=== PATIENT | male | born 1975 | race Caucasian/White ===

== ENCOUNTER 2022-02-03 10:02 | Emergency (ER) | payer BC, SELFPAY ==
[2022-02-03 11:25] VITALS: BP 196/94; PULSE 88; RESP 18; TEMP 36.8; O2SAT 97; BMI 25.0
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
[2022-02-03 11:58] VITALS: BP 176/101; PULSE 88; RESP 18; TEMP 36.8; O2SAT 97
== END 2022-02-03 12:11 | disposition home or self-care (01) ==
PROVIDERS: Emergency Provider Nurse Practitioner; PCP Physician Assistant
DX: L03.90 Cellulitis, unspecified (principal); R21 Rash and other nonspecific skin eruption; F41.9 Anxiety disorder, unspecified; F17.210 Nicotine dependence, cigarettes, uncomplicated; Z79.52 Long term (current) use of systemic steroids; Z79.899 Other long term (current) drug therapy; W57.XXXA Bitten or stung by nonvenomous insect and other nonvenomous arthropods, initial encounter; Y92.019 Unspecified place in single-family (private) house as the place of occurrence of the external cause
CPT/HCPCS: 99213; G0463

== ENCOUNTER 2022-02-24 13:14 | Emergency (ER) | payer BC, SELFPAY ==
[2022-02-24 13:16] VITALS: BP 185/123; PULSE 122; RESP 22; TEMP 36.5; O2SAT 97; BMI 24.3
--- NOTE | 2022-02-24 13:43 | HMH.EDSKAF ---
ED Disposition Clinical Impression: Impetigo Shingles Qualifiers: Herpes zoster complications: without complications Qualified Code(s): B02.9 - Zoster without complications Disposition: Home, Self-Care Condition on Discharge: Good Instructions: DI for Shingles Prescriptions: methylPREDNISolone [Medrol 4mg tab] 4 mg PO DIRECTED #21 tab [facility] Status[facility] Mupirocin Calcium [Mupirocin 2% Cream 15gm] 1 applicatio TP TID #30 gm Transmission Status: [facility] Valacyclovir HCl [Valacyclovir] 1,000 mg PO TID #21 tab Transmission Status: [facility] Referrals: Shalini Fuentes PA [Primary Care Provider] - - Critical Care Critical Care Time: No Attestation: On 02/24/22, the high probability of a clinically significant, sudden or life threatening deterioration of the following system(s) required my full and direct attention, intervention and personal management. The time I documented below is in addition to time spent performing reported procedures but includes the following listed in this critical care notation. Medical Decision Making - Medical Records Medical records reviewed: Yes: I reviewed the patient's medical records. - Randy Inquiry Pt receiving controlled substance: No Vital Signs: 02/24/22 13:16 Temperature 97.7 F Temperature Source Oral Pulse Rate [Right Radial] 122 H Respiratory Rate 22 Blood Pressure [Right Arm] 185/123 H Blood Pressure Mean [Right Arm] 143 Blood Pressure Source [Right Arm] Automatic Cuff Blood Pressure Position [Right Arm] Sitting 02 Sat by Pulse Oximetry 97 Oxygen Delivery Method Room Air Medical Decision Narrative: 46-year-old male presented to the emergency department with rash. Symptoms are consistent with shingles. Patient placed on antiviral as well as steroid therapy. Topical cream will be also prescribed for possible superinfection with impetigo. Patient needs follow-up with PCP in 48 hours. Given strict return precautions. Verbalized understanding. Skin/Abscess/FB HPI - General Chief complaint: Skin/Abscess/Foreign Body Stated complaint: painful rash/seeping, possible anxiety Time Seen by Provider: 02/24/22 13:20 Mode of Arrival: Ambulatory Limitations: No Limitations Description of Symptoms (Recalled from ER Triage Doc. by RN): Pt c/o diffuse rash that is painful and ithching. Pt advises that it began on his rt ankle, but is now on his back and under his rt arm. - History of Present Illness HPI narrative: 46-year-old male presenting with a rash over his abdomen and trunk. Patient states that he has had this for the last few days. It started to get painful and itchy as well. It wraps around from his right back and flank across his abdomen. He denies any recent contacts or new ingestions. He states that it does drain some clear fluid. Denies any pus. Is not having fevers or chills. No headache or change in vision. No focal weakness. Chest pain or shortness of breath. Abdominal pain or vomiting. No diarrhea. - Related Data Previous Rx's Medication Instructions Recorded sulfacetamide sodium 10 % eye drops 2 drp OPHTHALMIC QID 7 Days #15 ml 07/26/21 triamcinolone acetonide 0.5 % 1 applic TOPICAL BID 7 Days #15 g 07/26/21 topical cream Mupirocin [Bactroban 2% Ointment 1 applicatio TP TID 10 Days #22 gm 02/03/22 22gm tube] cephALEXin [cephALEXin 500mg 500 mg PO Q6H 7 Days #28 cap 02/03/22 capsule*] predniSONE [Deltasone 10mg tablet] 10 mg PO BID 5 Days #10 tab 02/03/22 Mupirocin Calcium [Mupirocin 2% 1 applicatio TP TID #30 gm 02/24/22 Cream 15gm] Valacyclovir HCl [Valacyclovir] 1,000 mg PO TID #21 tab 02/24/22 methylPREDNISolone [Medrol 4mg 4 mg PO DIRECTED #21 tab 02/24/22 tab] Allergies Allergy/AdvReac Type Severity Reaction Status Date / Time No Known Allergies Allergy Verified 07/26/21 12:33 [facility] History - Hepatitis A S
[2022-02-24 13:49] VITALS: BP 174/98; PULSE 109; RESP 20; TEMP 36.5; O2SAT 97
== END 2022-02-24 13:56 | disposition home or self-care (01) ==
PROVIDERS: Emergency Provider Emergency Medicine; PCP Physician Assistant
DX: B02.9 Zoster without complications (principal); R21 Rash and other nonspecific skin eruption; F41.9 Anxiety disorder, unspecified; F17.210 Nicotine dependence, cigarettes, uncomplicated; Z79.52 Long term (current) use of systemic steroids; Z79.899 Other long term (current) drug therapy
CPT/HCPCS: 99283

== ENCOUNTER 2022-06-30 09:43 | Emergency (ER) | payer BC, SELFPAY ==
--- NOTE | 2022-06-30 09:47 | HMH.EDUTC ---
[facility] [place] Clinical Impression: Viral syndrome Disposition: Home, Self-Care Condition on Discharge: Good Instructions: DI for Viral Syndrome, DI for COVID-19 (Suspected or Confirmed ), Preventing the Spread of Coronavirus Discharge Instructions Additional Instructions: Drink plenty of fluids. Take tylenol or ibuprofen for pain or fever. Take the medications as directed. Follow up with your regular doctor. GO TO THE ER FOR ANY WORSENING SYMPTOMS Quarantine until you know the results of your covid-19 test. Notify your school or workplace of your results and follow their instructions regarding return to work/school. Prescriptions: Ondansetron [Zofran 4mg ODT] 4 mg PO Q8HP PRN #12 tab PRN Reason: Nausea Transmission Status: [facility] Benzonatate [Benzonatate 100mg cap] 100 mg PO TIDP PRN #30 cap PRN Reason: Cough Transmission Status: Re[facility] by [facility] Referrals: Shalini Fuentes PA [Primary Care Provider] - Forms: Work/School Release Time of Disposition: 10:32 Medical Decision Making - Medical Records Medical records reviewed: No: I reviewed the patient's medical records. - Randy Inquiry Pt receiving controlled substance: No Vital Signs: 06/30/22 09:55 06/30/22 10:35 Temperature 99.2 F 99.2 F Temperature Source Oral Pulse Rate 126 H Pulse Rate [Left Brachial] 126 H Respiratory Rate 20 20 Blood Pressure 195/118 H Blood Pressure [Left Arm] 195/118 H Blood Pressure Mean [Left Arm] 143 Blood Pressure Source [Left Arm] Automatic Cuff Blood Pressure Position [Left Arm] Sitting 02 Sat by Pulse Oximetry 99 Oxygen Delivery Method Room Air - Lab Data Lab results reviewed: Yes: I reviewed the patient's lab results. Lab Results 06/30/22 09:55: Chlamy pneumoniae PCR Not detected, Adenovirus (PCR) Not detected, B. pertussis DNA (PCR) Not detected, Coronavirus OC43 (PCR) Not detected, Coronavirus HKU1 (PCR) Not detected, Coronavirus 229E (PCR) Not detected, SARS-CoV-2 (PCR) Not detected, Coronavirus NL63 (PCR) Not detected, Human Metapneumovir PCR Not detected, Influenza A (H1) PCR Not detected, Influ A (H1N1/09) PCR Not detected, Influenza A (H3) PCR Not detected, Influenza Type A (PCR) Not detected, Influenza Type B (PCR) Not detected, M. pneumoniae (PCR) Not detected, Parainfluenza 1 (PCR) Not detected, Parainfluenza 2 (PCR) Not detected, Parainfluenza 3 (PCR) Not detected, Parainfluenza 4 (PCR) Not detected, RSV (PCR) Not detected, Entero/Rhino (PCR) Detected A [facility] [place] - General Stated complaint: covid test Time Seen by Provider: 06/30/22 09:47 - History of Present Illness Provider Complaint: He states that for the past 2 days he has felt bad, had scratchy sore throat and felt bad. - Related Data Previous Rx's Medication Instructions Recorded sulfacetamide sodium 10 % eye drops 2 drp OPHTHALMIC QID 7 Days #15 ml 07/26/21 triamcinolone acetonide 0.5 % 1 applic TOPICAL BID 7 Days #15 g 07/26/21 topical cream Mupirocin [Bactroban 2% Ointment 1 applicatio TP TID 10 Days #22 gm 02/03/22 22gm tube] cephALEXin [cephALEXin 500mg 500 mg PO Q6H 7 Days #28 cap 02/03/22 capsule*] predniSONE [Deltasone 10mg tablet] 10 mg PO BID 5 Days #10 tab 02/03/22 Mupirocin Calcium [Mupirocin 2% 1 applicatio TP TID #30 gm 02/24/22 Cream 15gm] Valacyclovir HCl [Valacyclovir] 1,000 mg PO TID #21 tab 02/24/22 methylPREDNISolone [Medrol 4mg 4 mg PO DIRECTED #21 tab 02/24/22 tab] Benzonatate [Benzonatate 100mg 100 mg PO TIDP PRN #30 cap 06/30/22 cap] Ondansetron [Zofran 4mg ODT] 4 mg PO Q8HP PRN #12 tab 06/30/22 Allergies Allergy/AdvReac Type Severity Reaction Status Date / Time No Known Allergies Allergy Verified 07/26/21 12:33 [facility] History - Hepatitis A Screen Attestation statement:: This patient has been screened for Hepatitis A risk factors. I have reviewed the patient's past medical
[2022-06-30 09:55] VITALS: BP 195/118; PULSE 126; RESP 20; TEMP 37.3; O2SAT 99; BMI 25.0
[2022-06-30 10:35] VITALS: BP 195/118; PULSE 126; RESP 20; TEMP 37.3; O2SAT 99
[2022-06-30 10:54] LABS: Adenovirus,PCR Not Detected (NotDetected); Bordetella Pertussis Not Detected (NotDetected); Chlamydophila Pneumoniae, PCR Not Detected (NotDetected); Coronavirus 19, PCR Not Detected (NotDetected); Coronavirus 229E Not Detected (NotDetected); Coronavirus NL63 Not Detected (NotDetected); Coronavirus OC43 Not Detected (NotDetected); Coronovirus HKU1,PCR Not Detected (NotDetected); Human Metapneumovirus Not Detected (NotDetected); Influenza A, PCR Not Detected (NotDetected); Influenza AH1, 2009 Not Detected (NotDetected); Influenza AH1, PCR Not Detected (NotDetected); Influenza AH3,PCR Not Detected (NotDetected); Influenza B, PCR Not Detected (NotDetected); Mycoplasma Pneumoniae, PCR Not Detected (NotDetected); Parainfluenza 1, PCR Not Detected (NotDetected); Parainfluenza 2, PCR Not Detected (NotDetected); Parainfluenza 3, PCR Not Detected (NotDetected); Parainfluenza 4, PCR Not Detected (NotDetected); Respiratory Syncytial Virus Not Detected (NotDetected)
[2022-06-30 12:13] LABS: Rhinovirus/Enterovirus Detected (NotDetected)
== END 2022-06-30 10:40 | disposition home or self-care (01) ==
PROVIDERS: Emergency Provider Nurse Practitioner Family; PCP Physician Assistant
DX: B34.9 Viral infection, unspecified (principal); Z20.822 Contact with and (suspected) exposure to COVID-19
CPT/HCPCS: 87581; 87632; 87798; 99212; C9803; G0463; U0003; U0005

== ENCOUNTER → 2022-12-08 09:02 | Outpatient (CLI) | payer BC, SELFPAY ==
[2022-12-08 17:36] LABS: Basophils % 0.4 % (0.1-2.0); Eosinophils # 0.3 K/mm3 (0.0-0.4); Eosinophils % 2.5 % (0.1-12.0); Hematocrit 51.5 % (42.0-52.0); Lymphocytes % 20.5 % (10-50); Mean Corpuscular HGB Conc 32.9 g/dL (31.8-35.4); Mean Corpuscular Hemoglobin 33.1 pg (27.0-31.2); Mean Corpuscular Volume 100.5 fl (80-94); Mean Platelet Volume 9.6 fl (7.4-10.4); Monocytes # 0.8 K/mm3 (0.1-1.0); Monocytes % 8.1 % (1.7-9.3); Neutrophils # 6.7 K/mm3 (1.8-7.8); Neutrophils % 68.5 % (37.0-80.0); Platelet Count 307 K/mm3 (142-424); Red Blood Count 5.12 M/mm3 (4.60-6.20); Red Cell Distribution Width 12.8 % (11.5-17.5); White Blood Count 9.8 K/mm3 (4.8-10.8)
[2022-12-08 17:37] LABS: Alanine Aminotransferase 26 U/L (12-78); Albumin Level 4.9 g/dl (3.5-5.0); Albumin/Globulin Ratio 1.8 (1.1-1.8); Alkaline Phosphatase 92 U/L (38-126); Anion Gap 11.2 mEq/L (5-15); Aspartate Amino Transferase 36 U/L (17-59); Bilirubin,Total 0.7 mg/dl (0.2-1.3); Blood Urea Nitrogen 12 mg/dl (9-20); Calcium 9.3 mg/dl (8.4-10.2); Carbon Dioxide 29 mmol/L (22.0-30.0); Chloride 102 mmol/L (98-107); Chol/HDL Ratio 4.8 (1-3.5); Cholesterol 266 mg/dl (140-200); Estimated Glomerular Filt Rate 80 ml/min (>60); GFR (African American) 97 ML/MIN (>60); Globulin 2.8 g/dL (1.3-3.2); Glucose 129 mg/dl (74-100); HDL Cholesterol 55 mg/dl (40-60); Potassium 4.2 mmoL/L (3.5-5.1); Sodium 138 mmol/L (136-145); Total Protein,Serum 7.7 g/dl (6.3-8.2); Triglycerides 184 mg/dl (30-150); VLDL Cholesterol 37 mg/dL (0-40)
[2022-12-08 17:48] LABS: Direct LDL Cholesterol 179.02 mg/dL (100-129)
[2022-12-08 17:52] LABS: 25-OH Vitamin D, Total 16.6 ng/mL (30-100)
[2022-12-08 18:06] LABS: Prostate Specific Ag Screen 2.5 ng/ml (0.0-4.0); Thyroid Stimulating Hormone 1.77 uIU/mL (0.465-4.68)
== END ==
LOC: LAB.DROPOF 12-09 06:53
PROVIDERS: PCP Student in an Organized Health Care Education/Training Program; Visit Provider Student in an Organized Health Care Education/Training Program
DX: I10 Essential (primary) hypertension (principal); E50.9 Vitamin A deficiency, unspecified; E55.9 Vitamin D deficiency, unspecified; Z12.5 Encounter for screening for malignant neoplasm of prostate
CPT/HCPCS: 80053; 80061; 82306; 84443; 85025; G0103

== ENCOUNTER 2023-06-20 10:57 | Emergency (ER) | payer BC, SELFPAY ==
[2023-06-20 11:00] VITALS: BP 147/87; PULSE 110; RESP 18; TEMP 36.6; O2SAT 98; BMI 27.4
--- NOTE | 2023-06-20 11:27 | HMH.EDGENADL ---
Discharge Plan Disposition Patient Disposition: Home, Self-Care Condition: Good Prescriptions Prescriptions: New ondansetron 4 mg tablet,disintegrating 4 mg PO Q8H 4 Days Qty: 12 0RF No Action multivitamin Tablet 1 tab PO DAILY lisinopril-hydrochlorothiazide 20-12.5 mg tablet 1 tab PO DAILY Qty: 30 2RF permethrin 5 % cream 1 applic topical Q14D Qty: 60 0RF Rx Instructions: apply second treatment 14 days after first treatment Referrals Follow up/Referrals: Renetta Crowe PA [Primary Care Provider] - See instructions Activity Restrictions/Add. Instructions Additional Instructions/Restrictions: Recommend that you continue to stay hydrated and eat regularly. Recommend that you follow up with your primary care provider or return to the Emergency Department should your symptoms worsen/persist or you develop any new concerning symptoms. As we discussed, plan to follow-up with your primary care provider in 1 to 2 weeks for repeat creatinine level. Clinical Impressions Clinical Impression: Light-headedness, Acute effusion of both middle ears, Mild nausea and vomiting, Creatinine elevation Instructions Patient Instructions: DI for Neck Pain Discharge ED Provider: Harman Gomez I General Adult HPI General Chief complaint: Neck Pain/Injury Stated complaint: dizzy, neck pain, anxiety Time Seen by Provider: 06/20/23 11:07 Mode of Arrival: Ambulatory Source of Information: Patient Limitations: No Limitations Description of Symptoms (Recalled from ER Triage Doc. by RN): dizziness and left side neck pain since waking up this morning, has vomitted twice but denies any fever or chest pain History of Present Illness HPI narrative: Patient is a 47-year-old male with history of hypertension presenting to the emergency department with lightheadedness, dizziness, nausea, vomiting that started today. History was conducted with the patient at bedside. Patient reports that he has otherwise been in his normal state of health over the past several days. Reports that he has had some stiffness in the left side of his neck this morning, denies any paresthesias or focal weakness in the bilateral upper or lower extremities. Denies any speech difficulty. He is also felt slightly dizzy when walking. He has had 2 episodes of nonbloody nonbilious emesis this morning and reports persistent nausea. He denies chest pain, shortness of breath, difficulty breathing, abdominal pain but does report he feels nauseous. Has had some chills at home but denies any fevers, body aches. Patient does perform some heavy lifting with his job, denies any significant recent straining, injury. Related Data Home Medications Medication Instructions Recorded Confirmed multivitamin 1 tab PO DAILY 12/05/22 06/16/23 Previous Rx's Medication Instructions Recorded lisinopril 20 1 tab PO DAILY #30 tabs 06/16/23 mg-hydrochlorothiazide 12.5 mg tablet permethrin 5 % topical cream 1 applic topical Q14D 2 doses #60 06/16/23 grams ondansetron 4 mg disintegrating 4 mg PO Q8H 4 days #12 tabs 06/20/23 tablet Allergies Allergy/AdvReac Type Severity Reaction Status Date / Time No Known Allergies Allergy Verified 06/16/23 08:39 [facility] Disclaimer: The information contained in this section may have been updated after the patient was seen, as this information can be updated by other users. Medical History Colonic polyp Social History Smoking Status: Current every day smoker tobacco type: cigarettes packs per day: 1 alcohol intake: never substance use type: denies use current occupational status: other Travel in the last 8 weeks: None household members: spouse housing: house current occupation: 3[employer] caffeine: No ROS Obtained: Yes All systems reviewed & no additional complaints except as documented C
[2023-06-20 11:31] VITALS: BP 121/67; PULSE 94; O2SAT 100
[2023-06-20 11:41] LABS: Basophils % 0.3 % (0.1-2.0); Eosinophils # 0.2 K/mm3 (0.0-0.4); Eosinophils % 1.5 % (0.1-12.0); Hematocrit 49.3 % (42.0-52.0); Hemoglobin 16.6 g/dL (14.1-18.0); Lymphocytes # 1.2 K/mm3 (0.7-4.5); Lymphocytes % 12.4 % (10-50); Mean Corpuscular HGB Conc 33.7 g/dL (31.8-35.4); Mean Corpuscular Hemoglobin 34.4 pg (27.0-31.2); Mean Corpuscular Volume 102.2 fl (80-94); Mean Platelet Volume 6.9 fl (7.4-10.4); Monocytes # 0.7 K/mm3 (0.1-1.0); Monocytes % 7.2 % (1.7-9.3); Neutrophils # 7.8 K/mm3 (1.8-7.8); Neutrophils % 78.6 % (37.0-80.0); Platelet Count 262 K/mm3 (142-424); Red Blood Count 4.83 M/mm3 (4.60-6.20); Red Cell Distribution Width 13.3 % (11.5-17.5)
[2023-06-20 11:46] LABS: Anion Gap 21.8 mEq/L (5-15); Blood Urea Nitrogen 11 mg/dl (9-20); Calcium 9.9 mg/dl (8.4-10.2); Carbon Dioxide 23 mmol/L (22.0-30.0); Chloride 99 mmol/L (98-107); Creatinine Clearance Estimated 75 mL/min (50-200); Estimated Glomerular Filt Rate 59 ml/min (>60); GFR (African American) 71 ML/MIN (>60); Glucose 95 mg/dl (74-100); Potassium 4.8 mmoL/L (3.5-5.1); Sodium 139 mmol/L (136-145)
[2023-06-20 12:03] VITALS: BP 134/80; PULSE 87; O2SAT 96
--- NOTE | 2023-06-20 12:07 | ECG_ITS ---
APPROVED REPORT Exam: Resting ECG HR:75 bpm ECG Measurements Heart Rate 75 AXES SC 140 P 71 QRSd 81 QRS 78 QT 359 T 69 QTc 389 Conclusion SINUS RHYTHM WITH MARKED SINUS ARRHYTHMIA BORDERLINE ECG UNCONFIRMED REPORT Electronically signed by : Diego Castro MD 06/22/2023 14:06:39
[2023-06-20 12:30] VITALS: BP 128/75; PULSE 78; O2SAT 98
[2023-06-20 12:40] VITALS: BP 128/75; PULSE 90; RESP 18; TEMP 36.7; O2SAT 98
== END 2023-06-20 12:43 | disposition home or self-care (01) ==
PROVIDERS: Emergency Provider Emergency Medicine; PCP Student in an Organized Health Care Education/Training Program
DX: R42 Dizziness and giddiness (principal); R11.2 Nausea with vomiting, unspecified; M54.2 Cervicalgia; I10 Essential (primary) hypertension; F17.210 Nicotine dependence, cigarettes, uncomplicated; H93.8X3 Other specified disorders of ear, bilateral
CPT/HCPCS: 80048; 85025; 93005; 96361; 96374; 99284; J2405

== ENCOUNTER → 2023-07-02 23:42 | Outpatient (CLI) | payer BC, SELFPAY ==
[2023-07-02 19:11] LABS: Basophils % 0.3 % (0.1-2.0); Eosinophils # 0.2 K/mm3 (0.0-0.4); Eosinophils % 2.5 % (0.1-12.0); Hematocrit 42.1 % (42.0-52.0); Hemoglobin 13.8 g/dL (14.1-18.0); Lymphocytes # 1.3 K/mm3 (0.7-4.5); Lymphocytes % 18.5 % (10-50); Mean Corpuscular HGB Conc 32.7 g/dL (31.8-35.4); Mean Corpuscular Hemoglobin 34.5 pg (27.0-31.2); Mean Corpuscular Volume 105.6 fl (80-94); Monocytes # 0.8 K/mm3 (0.1-1.0); Monocytes % 11.2 % (1.7-9.3); Neutrophils # 4.6 K/mm3 (1.8-7.8); Neutrophils % 67.4 % (37.0-80.0); Platelet Count 286 K/mm3 (142-424); Red Blood Count 3.98 M/mm3 (4.60-6.20); Red Cell Distribution Width 13.1 % (11.5-17.5); White Blood Count 6.7 K/mm3 (4.8-10.8)
[2023-07-02 19:33] LABS: Alanine Aminotransferase 43 U/L (12-78); Albumin Level 4.1 g/dl (3.5-5.0); Albumin/Globulin Ratio 1.8 (1.1-1.8); Alkaline Phosphatase 58 U/L (38-126); Aspartate Amino Transferase 33 U/L (17-59); Bilirubin,Total 0.2 mg/dl (0.2-1.3); Blood Urea Nitrogen 13 mg/dl (9-20); Calcium 9.1 mg/dl (8.4-10.2); Carbon Dioxide 31 mmol/L (22.0-30.0); Chloride 98 mmol/L (98-107); Chol/HDL Ratio 3.3 (1-3.5); Cholesterol 166 mg/dl (140-200); Estimated Glomerular Filt Rate 79 ml/min (>60); GFR (African American) 96 ML/MIN (>60); Globulin 2.3 g/dL (1.3-3.2); Glucose 118 mg/dl (74-100); HDL Cholesterol 51 mg/dl (40-60); Sodium 137 mmol/L (136-145); Total Protein,Serum 6.4 g/dl (6.3-8.2); Triglycerides 51 mg/dl (30-150); VLDL Cholesterol 10 mg/dL (0-40)
[2023-07-02 19:45] LABS: Direct LDL Cholesterol 99.65 mg/dL (100-129)
[2023-07-02 19:51] LABS: 25-OH Vitamin D, Total 45.9 ng/mL (30-100)
[2023-07-02 20:04] LABS: Thyroid Stimulating Hormone 0.15 uIU/mL (0.465-4.68)
[2023-07-02 22:14] LABS: Hemoglobin A1C 5.5 % (4.0-6.0)
== END ==
LOC: LAB.DROPOF 23:42
PROVIDERS: PCP Student in an Organized Health Care Education/Training Program; Visit Provider Student in an Organized Health Care Education/Training Program
DX: I10 Essential (primary) hypertension (principal); R53.83 Other fatigue; E55.9 Vitamin D deficiency, unspecified; Z13.29 Encounter for screening for other suspected endocrine disorder; Z79.899 Other long term (current) drug therapy
CPT/HCPCS: 80053; 80061; 82306; 83036; 84443; 85025

== ENCOUNTER → 2023-08-06 23:19 | Outpatient (CLI) | payer BC, SELFPAY ==
[2023-08-06 18:15] LABS: Basophils % 0.2 % (0.1-2.0); Eosinophils # 0.5 K/mm3 (0.0-0.4); Eosinophils % 5.6 % (0.1-12.0); Hematocrit 50.3 % (42.0-52.0); Hemoglobin 16.2 g/dL (14.1-18.0); Lymphocytes # 2.3 K/mm3 (0.7-4.5); Lymphocytes % 27.8 % (10-50); Mean Corpuscular HGB Conc 32.1 g/dL (31.8-35.4); Mean Corpuscular Hemoglobin 33.2 pg (27.0-31.2); Mean Corpuscular Volume 103.2 fl (80-94); Monocytes # 0.8 K/mm3 (0.1-1.0); Monocytes % 9.3 % (1.7-9.3); Neutrophils # 4.8 K/mm3 (1.8-7.8); Platelet Count 406 K/mm3 (142-424); Red Blood Count 4.87 M/mm3 (4.60-6.20); Red Cell Distribution Width 12.8 % (11.5-17.5); White Blood Count 8.4 K/mm3 (4.8-10.8)
[2023-08-06 18:22] LABS: Iron 116 ug/dL (49-181)
[2023-08-06 18:31] LABS: Total Iron Binding Capacity 312 ug/dL (261-462)
[2023-08-06 18:42] LABS: Free Thyroxine Index 1.8 ug/dL (5.93-13.13); T4 (Thyroxine) 4.9 ug/dl (5.53-11.0); Triiodothryronine (T3) Uptake 36 % (23.5-40.5)
[2023-08-06 18:55] LABS: Thyroid Stimulating Hormone 1.13 uIU/mL (0.465-4.68)
[2023-08-06 18:58] LABS: Ferritin 159 ng/ml (17.9-464)
[2023-08-06 20:04] LABS: Vitamin B12 425 pg/mL (239-931)
[2023-08-06 20:05] LABS: Folate 8.46 ng/mL
== END ==
LOC: LAB.DROPOF 23:19
PROVIDERS: PCP Student in an Organized Health Care Education/Training Program; Visit Provider Student in an Organized Health Care Education/Training Program
DX: I10 Essential (primary) hypertension (principal); D64.9 Anemia, unspecified; R79.89 Other specified abnormal findings of blood chemistry
CPT/HCPCS: 82607; 82728; 82746; 83540; 83550; 84436; 84443; 84479; 85025

== ENCOUNTER → 2023-08-26 14:39 | Outpatient (CLI) | payer BC, SELFPAY ==
--- NOTE | 2023-08-26 14:39 | US_ITS ---
FINAL REPORT CLINICAL HISTORY: abnormal thyroid labs COMPARISON: None FINDINGS: THYROID ULTRASOUND: The right lobe of the thyroid gland measures 4.4 x 1.8 x 1.5 cm in size. No focal nodule or mass is noted in the right thyroid gland. The left lobe of the thyroid gland measures 4.6 x 2 x 1.7 cm in size. No focal nodule or mass is noted in the left thyroid gland. The isthmus is unremarkable in appearance and measures 5.4 mm in diameter. IMPRESSION: No focal nodule or mass is seen in the thyroid gland. Reviewed, Interpreted and Dictated by Wang Magallon III, MD Transcribed by Katelynn Nur Authenticated and [facility]
== END ==
LOC: RAD 14:39
PROVIDERS: PCP Student in an Organized Health Care Education/Training Program; Visit Provider Student in an Organized Health Care Education/Training Program
DX: R79.89 Other specified abnormal findings of blood chemistry (principal)
CPT/HCPCS: 76536

== ENCOUNTER → 2023-10-19 23:46 | Outpatient (CLI) | payer BC, SELFPAY | LOC: LAB.DROPOF 23:47 | PROVIDERS: PCP Student in an Organized Health Care Education/Training Program; Visit Provider Student in an Organized Health Care Education/Training Program | DX: R53.83 Other fatigue (principal); R51.9 Headache, unspecified | CPT/HCPCS: 87635 ==

== ENCOUNTER 2023-11-04 16:22 | Emergency (ER) | payer BC, SELFPAY ==
[2023-11-04] VITALS (7 sets, daily range): BP systolic 123–186; BP diastolic 71–119; PULSE 83–106; RESP 16–20; TEMP 36.7–36.8; O2SAT 95–99; BMI 23.6
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
--- NOTE | 2023-11-04 17:13 | PC.NURSE ---
PT arrived to ED room 5 from [facility]
--- NOTE | 2023-11-04 18:41 | PC.NURSE ---
pt up to restroom
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
[2023-11-04] MEDS: diphenhydrAMINE 50MG/ML VIAL 25 MG IV (19:13)
[2023-11-04] MEDS: FAMOTIDINE 20MG/2ML VIAL 20 MG IV (19:13)
[2023-11-04] MEDS: SODIUM CHLORIDE 0.9% 10ML VIAL 8 ML IV (19:13)
[2023-11-04] MEDS: LACTATED RINGERS 1000ML 1,000 ML 999 ML IV (19:13)
[2023-11-04] MEDS: DEXAMETHASONE 4MG/ML 1ML VIAL 10 MG IV (19:15)
--- NOTE | 2023-11-04 20:32 | PC.NURSE ---
Patient reports improvement of swelling and ability to speak at this time. Notified provider.
== END 2023-11-04 21:08 | disposition still patient (30) ==
LOC: UTC 16:24 → ER 17:12
PROVIDERS: Emergency Provider Student in an Organized Health Care Education/Training Program; PCP Student in an Organized Health Care Education/Training Program
DX: R22.0 Localized swelling, mass and lump, head (principal); T46.4X5A Adverse effect of angiotensin-converting-enzyme inhibitors, initial encounter; I10 Essential (primary) hypertension; F17.210 Nicotine dependence, cigarettes, uncomplicated
CPT/HCPCS: 96361; 96374; 96375; 99285

== ENCOUNTER 2023-12-21 21:44 | Outpatient (CLI) | payer BC, SELFPAY ==
[2023-12-21 18:32] LABS: Basophils % 0.3 % (0.1-2.0); Eosinophils # 0.2 K/mm3 (0.0-0.4); Eosinophils % 1.5 % (0.1-12.0); Hematocrit 45.3 % (42.0-52.0); Hemoglobin 15.1 g/dL (14.1-18.0); Lymphocytes # 1.6 K/mm3 (0.7-4.5); Lymphocytes % 11.5 % (10-50); Mean Corpuscular HGB Conc 33.4 g/dL (31.8-35.4); Mean Corpuscular Hemoglobin 34.3 pg (27.0-31.2); Mean Corpuscular Volume 102.8 fl (80-94); Mean Platelet Volume 10.3 fl (7.4-10.4); Monocytes % 7.4 % (1.7-9.3); Neutrophils # 10.7 K/mm3 (1.8-7.8); Neutrophils % 79.4 % (37.0-80.0); Platelet Count 335 K/mm3 (142-424); Red Blood Count 4.41 M/mm3 (4.60-6.20); Red Cell Distribution Width 13.4 % (11.5-17.5); White Blood Count 13.5 K/mm3 (4.8-10.8)
[2023-12-21 18:40] LABS: Alanine Aminotransferase 20 U/L (12-78); Albumin Level 4.3 g/dl (3.5-5.0); Albumin/Globulin Ratio 1.7 (1.1-1.8); Alkaline Phosphatase 100 U/L (38-126); Anion Gap 13.2 mEq/L (5-15); Aspartate Amino Transferase 26 U/L (17-59); Bilirubin,Total 0.7 mg/dl (0.2-1.3); Blood Urea Nitrogen 12 mg/dl (9-20); Calcium 9.2 mg/dl (8.4-10.2); Carbon Dioxide 28 mmol/L (22.0-30.0); Chloride 103 mmol/L (98-107); Chol/HDL Ratio 5.4 (1-3.5); Cholesterol 238 mg/dl (140-200); Estimated Glomerular Filt Rate 89 ml/min (>60); GFR (African American) 108 ML/MIN (>60); Globulin 2.6 g/dL (1.3-3.2); Glucose 72 mg/dl (74-100); HDL Cholesterol 44 mg/dl (40-60); Potassium 4.2 mmoL/L (3.5-5.1); Sodium 140 mmol/L (136-145); Total Protein,Serum 6.9 g/dl (6.3-8.2); Triglycerides 126 mg/dl (30-150); VLDL Cholesterol 25 mg/dL (0-40)
[2023-12-21 18:54] LABS: C-Reactive Protein 111.7 mg/L (0-4); Direct LDL Cholesterol 149.43 mg/dL (100-129)
[2023-12-21 18:56] LABS: Erythrocyte Sedimentation Rate 16 mm/hr (0-15)
[2023-12-21 19:11] LABS: Thyroid Stimulating Hormone 0.99 uIU/mL (0.465-4.68)
[2023-12-21 19:30] LABS: Vitamin B12 572 pg/mL (239-931)
[2023-12-21 22:00] LABS: Hemoglobin A1C 5.3 % (4.0-6.0)
== END 2023-12-21 23:59 ==
LOC: LAB.DROPOF 21:44
PROVIDERS: PCP Student in an Organized Health Care Education/Training Program; Visit Provider Student in an Organized Health Care Education/Training Program
DX: I10 Essential (primary) hypertension (principal); R60.9 Edema, unspecified; T46.1X5A Adverse effect of calcium-channel blockers, initial encounter; E78.5 Hyperlipidemia, unspecified; E55.9 Vitamin D deficiency, unspecified
CPT/HCPCS: 80053; 80061; 82306; 82607; 83036; 84443; 84550; 85025; 85651; 86140